=== PATIENT | female | born 1960 | race Caucasian/White ===

== ENCOUNTER 2025-04-27 06:15 | Day surgery (SDC) | payer OTHER, SELFPAY | END 2025-04-27 12:24 | disposition home or self-care (01) | LOC: GI 06:15 | PROVIDERS: ATTENDING PHYSICIAN Surgery | DX: Z12.11 Encounter for screening for malignant neoplasm of colon (principal); R19.5 Other fecal abnormalities; D12.0 Benign neoplasm of cecum | CPT/HCPCS: 45380; 88305 ==